=== PATIENT | male | born 1960 | race Caucasian/White ===

== ENCOUNTER 2018-05-26 18:58 | Observation (INO) | payer BC ==
[~2018-05-26] VITALS: Ht 177.8 cm; Wt 81.3 kg
[2018-05-26] MEDS ORDERED: KETOROLAC TROMETHAMINE 30 MG/ML VIAL IV STA (19:35)
[2018-05-26] MEDS ORDERED: SODIUM CHLORIDE 0.9% 1000ML 1,000 ML IV STA (19:45)
[2018-05-26] MEDS ORDERED: ONDANSETRON HCL INJ 2 MG/ML VIAL IV ONE (19:45)
[2018-05-26] MEDS ORDERED: HYDROMORPHONE 1MG/1ML INJ IV STA (19:45)
[2018-05-26] MEDS ORDERED: KETOROLAC TROMETHAMINE 30 MG/ML VIAL ONE (19:53)
[2018-05-26] MEDS ORDERED: ONDANSETRON HCL INJ 2 MG/ML VIAL ONE (19:53)
[2018-05-26] MEDS ORDERED: HYDROMORPHONE 2MG/ML 2 MG/ML ML IV ONE (20:00)
[2018-05-26 20:08] LABS: BASOPHILS # (AUTO) 0.1 (0.0-0.1); BASOPHILS % 0.1 % (0.0-1.0); EOSINOPHILS # (AUTO) 0.2 (0.0-0.4); EOSINOPHILS % 0.2 % (0.0-6.0); HEMOGLOBIN 15.5 g/dL (14.0-18.0); LYMPHOCYTES # (AUTO) 74.4 (1.0-3.2); LYMPHOCYTES % 82.1 % (18.0-39.1); MEAN CORPUSCULAR HEMOGLOBIN 32.6 pg (28-32); MEAN CORPUSCULAR HGB CONC 33.7 g/dL (31-35); MEAN CORPUSCULAR VOLUME 96.6 fL (81-99); MONOCYTES # (AUTO) 4.9 (0.2-0.8); MONOCYTES % 5.4 % (4.4-11.3); NEUTROPHILS # (AUTO) 10.6 (2.1-6.9); NEUTROPHILS % 11.7 % (38.7-80.0); PLATELET COUNT 173 x10e3/uL (140-360); RED BLOOD COUNT 4.76 x10e6/uL (4.3-5.7); RED CELL DISTRIBUTION WIDTH 13.5 % (11.7-14.4)
[2018-05-26 20:40] LABS: ALBUMIN/GLOBULIN RATIO 1.5 (0.8-2.0); ANION GAP 16.7 mmol/L (8-16); CALCIUM 9.9 mg/dL (8.4-10.2); CREATININE, SERUM 1.7 mg/dL (0.72-1.25); POTASSIUM 4.7 mmol/L (3.5-5.1)
[2018-05-26 20:43] LABS: LYMPHOCYTES % (MANUAL) 66 % (19-48); MONOCYTES % (MANUAL) 1 % (3.4-9.0); NEUTROPHILS % (MANUAL) 14 % (40-74); PLATELET ESTIMATE ADEQUATE; PLATELET MORPHOLOGY COMMENT NORMAL; RBC MORPHOLOGY COMMENT NORMAL
[2018-05-26 20:44] LABS: SMUDGE CELLS MODERATE
--- NOTE | 2018-05-26 21:43 | Diagnostic Imaging Report ---
EXAM: CT ABDOMEN/PELVIS WO DATE: 05/26/2018 7:45 PM INDICATION: Abdominal pain, right flank pain COMPARISON: None TECHNIQUE: The abdomen and pelvis were scanned using a multidetector helical scanner. Coronal and sagittal reformations were obtained. CT low dose techniques were utilized, as applicable. IV Contrast: 0 ml Isovue 300/370 FINDINGS: Lack of IV contrast decreases sensitivity in evaluating abdominal and pelvic organs. LOWER THORAX: No consolidations LIVER/BILIARY: Multiple low-density liver lesions, the largest compatible with cysts. . GALLBLADDER: Unremarkable SPLEEN: Unremarkable PANCREAS: Unremarkable ADRENALS: No nodules KIDNEYS: No left renal stones or hydronephrosis. Nonobstructing right inferior renal stones, the largest about 8 mm. Mild right hydroureteronephrosis with several small stones seen in the distal ureter and at the UVJ the largest measuring 4 to 5 mm (distal ureter) greatest dimension and the other two 1-2 mm. Mild right perinephric and periureteral stranding. GI TRACT: No wall thickening or evidence of obstruction. Normal appendix. Diverticulosis. VESSELS: Mild atherosclerotic calcifications PERITONEUM/RETROPERITONEUM: No free air or fluid collection LYMPH NODES: Abdominal and pelvic adenopathy including retroperitoneal, iliac and femoral chains. For example a right pelvic sidewall node measures 2.9 cm in short axis, left external iliac node 1.7 cm short axis, and a left periaortic node 1.2 cm in short axis. REPRODUCTIVE ORGANS/BLADDER: Unremarkable SOFT TISSUES: No acute findings. BONES: No suspicious bone lesions. IMPRESSION: 1. Mild right hydroureteronephrosis inflammatory changes related to multiple distal right ureteral calculi, as above. Nonobstructing right inferior renal calculi. 2. Abdominopelvic adenopathy suspicious for lymphoma or potentially metastatic disease of unknown primary. Signed by: Dr Radha Kaur MD on 05/26/2018 9:39 PM
[2018-05-26 22:45] LABS: BILIRUBIN,URINE NEGATIVE (NEGATIVE); CLARITY,URINE CLEAR (CLEAR); COLOR,URINE YELLOW (YELLOW); KETONES,URINE NEGATIVE (NEGATIVE); LEUKOCYTE ESTERASE ,URINE NEGATIVE (NEGATIVE); NITRITE,URINE NEGATIVE (NEGATIVE); PROTEIN,URINE DIPSTICK NEGATIVE (NEGATIVE); URINE UROBILINOGEN 0.2 mg/dL (0.2 - 1)
[2018-05-26 22:57] LABS: RBC,URINE 21-50 /HPF (0-5)
[2018-05-26 22:58] LABS: BACTERIA,URINE FEW /HPF; EPITHELIAL CELLS,URINE FEW /LPF; MUCUS,URINE MODERATE (RARE)
[2018-05-27] MEDS ORDERED: MORPHINE SULFATE 2 MG/ML SYR IV PRN (01:00)
[2018-05-27] MEDS: SODIUM CHLORIDE 0.9% 1000ML 1,000 ML IV SCH ×3 (01:43→17:12)
--- OUTSIDE RECORDS SUMMARY | 2018-05-27 01:43 | XMS REPORT ---
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 Allergies, Adverse Reactions, Alerts This patient has no known allergies or adverse reactions. Medications This patient has no known medications. Results Test Description Test Time Test Comments Text Results Atomic Results Result Comments CT ABDOMEN/PELVIS WO 2018-05-26 21:31:00 [place] [id number] [place] [id number] Patient Name: JESSICA ARMAS MR #: [id number] : 1960 Age/Sex: 58/M Req #: [id number] Adm Physician: Ordered by: JARET BAEZA NP Report #: [id number] Location: ER Room/Bed: Procedure: [id number] CT/CT ABDOMEN/PELVIS WO Exam Date: 05/26/18 Exam Time: 2026 REPORT STATUS: Signed EXAM: CT ABDOMEN/PELVIS WO DATE: 05/26/2018 7:45 PM INDICATION: Abdominal pain, right flank pain COMPARISON: None TECHNIQUE: The abdomen and pelvis were scanned using a multidetector helical scanner. Coronal and sagittal reformations were obtained. CT low dose techniques were utilized, as applicable. IV Contrast: 0 ml Isovue 300/370 FINDINGS: Lack of IV contrast decreases sensitivity in evaluating abdominal and pelvic organs. LOWER THORAX: No consolidations LIVER/BILIARY: Multiple low-density liver lesions, the largest compatible with cysts. . GALLBLADDER: Unremarkable SPLEEN: Unremarkable PANCREAS: Unremarkable ADRENALS: No nodules KIDNEYS: No left renal stones or hydronephrosis. Nonobstructing right inferior renal stones, the largest about 8 mm. Mild right hydroureteronephrosis with several small stones seen in the distal ureter and at the UVJ the largest measuring 4 to 5 mm (distal ureter) greatest dimension and the other two 1-2 mm. Mild right perinephric and periureteral stranding. GI TRACT: No wall thickening or evidence of obstruction. Normal appendix. Diverticulosis. VESSELS: Mild atherosclerotic calcifications PERITONEUM/RETROPERITONEUM: No free air or fluid collection LYMPH NODES: Abdominal and pelvic adenopathy including retroperitoneal, iliac and femoral chains. For example a right pelvic sidewall node measures 2.9 cm in short axis, left external iliac node 1.7 cm short axis, and a left periaortic node 1.2 cm in short axis. REPRODUCTIVE ORGANS/BLADDER: Unremarkable SOFT TISSUES: No acute findings. BONES: No suspicious bone lesions. IMPRESSION: 1. Mild right hydroureteronephrosis inflammatory changes related to multiple distal right ureteral calculi, as above. Nonobstructing right inferior renal calculi. 2. Abdominopelvic adenopathy suspicious for lymphoma or potentially metastatic disease of unknown primary. Signed by: Dr Raman Kaur MD on 05/26/2018 9:39 PM Dictated By: RAMAN KAUR MD El ectronically Signed By: RAMAN KAUR MD on 05/26/182138 Transcribed By: SUDHA on 05/26/182138 COPY TO: JARET BAEZA NP
[2018-05-27] MEDS ORDERED: ONDANSETRON HCL INJ 2 MG/ML VIAL IV PRN (01:45)
[2018-05-27] MEDS ORDERED: no home meds (04:46)
--- NOTE | 2018-05-27 06:53 | History and Physical ---
REASON FOR ADMISSION: Right kidney stone. HISTORY OF PRESENT ILLNESS: Patient is 58-year-old gentleman, who had recent ultrasonography done with stone, what sounds like a shockwave, who was doing well within 1 day after the ultrasound, patient had acute right-sided pain. When he came in, he was found to have multiple stones kind of wedged in his right ureter, the largest size being about 4-5 mm with some mild hydronephrosis, so he is being admitted for further evaluation. PAST MEDICAL HISTORY: Significant for CLL. MEDICATIONS: See MAR. ALLERGIES: NONE. SOCIAL: Nonsmoker, nondrinker. FAMILY HISTORY: Noncontributory. PHYSICAL EXAM VITALS: 98.6, pulse 74, blood pressure 136/72, sats are 98%. GENERAL: In no apparent distress, lying in bed. NECK: Supple. CARDIOVASCULAR: Regular rate and rhythm. LUNGS: Clear to auscultation bilaterally. ABDOMEN: Good bowel sounds. Soft, nontender. FLANK: There is no any flank tenderness at the moment. EXTREMITIES: No clubbing, cyanosis. NEUROLOGIC: Nonfocal. ASSESSMENT AND PLAN 1. Right nephrolithiasis. Will continue with current care. Consult Dr. Boland. 2. Acute kidney injury. Will continue to monitor. Hopefully, the creatinine will improve postremoval of the kidney stone. 3. Chronic lymphocytic leukemia. Continue to monitor. Patient states his baseline is around 80,000. Please see hospital chart for full details. Job#: [id number] CQ
[2018-05-27] MEDS ORDERED: PROPOFOL IV EMULSION 10 MG/ML 20 ML VIAL ONE (11:42)
[2018-05-27] MEDS ORDERED: LIDOCAINE HCL 2% LOCAL INJ 5 ML SDV VIAL INJ ONE (11:42)
[2018-05-27] MEDS ORDERED: SEVOFLURANE INHAL SOLN 250 ML PEN BTL ONE (11:42)
[2018-05-27] MEDS ORDERED: DEXAMETHASONE SOD PHOS INJ 4 MG/ML VIAL ONE (11:42)
[2018-05-27] MEDS ORDERED: CEFTRIAXONE SOD 1 GM VIAL ONE (11:42)
[2018-05-27] MEDS ORDERED: ONDANSETRON HCL INJ 2 MG/ML VIAL ONE (11:42)
[2018-05-27] MEDS ORDERED: BELLADONNA/OPIUM 60 MG SUPP PR ONE (12:10)
[2018-05-27] MEDS ORDERED: IOPAMIDOL 610MG/1ML 300 MG/ML VIAL IV ONE (12:10)
[2018-05-27 13:45] VITALS: BP 119/83
[2018-05-27] MEDS: OXYBUTYNIN CHLORIDE 5 MG TAB PO SCH ×2 (16:34→20:47)
[2018-05-27 16:36] VITALS: BP 103/64
[2018-05-27] MEDS: PHENAZOPYRIDINE HCL 100 MG TAB PO SCH (17:27)
[2018-05-27 19:50] VITALS: BP 96/53
[2018-05-27 20:00] VITALS: BP 96/53
[2018-05-28 00:40] VITALS: BP 91/58
[2018-05-28 05:00] VITALS: BP 116/66
[2018-05-28 05:39] LABS: BASOPHILS # (AUTO) 0.2 (0.0-0.1); BASOPHILS % 0.3 % (0.0-1.0); EOSINOPHILS # (AUTO) 0.1 (0.0-0.4); EOSINOPHILS % 0.1 % (0.0-6.0); HEMOGLOBIN 12.8 g/dL (14.0-18.0); LYMPHOCYTES # (AUTO) 48.4 (1.0-3.2); LYMPHOCYTES % 80.3 % (18.0-39.1); MEAN CORPUSCULAR HEMOGLOBIN 32.8 pg (28-32); MEAN CORPUSCULAR HGB CONC 33.7 g/dL (31-35); MEAN CORPUSCULAR VOLUME 97.4 fL (81-99); MONOCYTES # (AUTO) 2.4 (0.2-0.8); MONOCYTES % 3.9 % (4.4-11.3); NEUTROPHILS # (AUTO) 8.9 (2.1-6.9); NEUTROPHILS % 14.9 % (38.7-80.0); PLATELET COUNT 129 x10e3/uL (140-360)
[2018-05-28 06:16] LABS: ANION GAP 13.9 mmol/L (8-16); CALCIUM 8.7 mg/dL (8.4-10.2); CREATININE, SERUM 1.49 mg/dL (0.72-1.25); POTASSIUM 4.9 mmol/L (3.5-5.1)
[2018-05-28 06:59] LABS: BAND NEUTROPHILS % (MANUAL) 1 %; LYMPHOCYTES % (MANUAL) 67 % (19-48); NEUTROPHILS % (MANUAL) 23 % (40-74); PLATELET ESTIMATE SLIGHTLY DECREASED; PLATELET MORPHOLOGY COMMENT NORMAL; SMUDGE CELLS MODERATE
[2018-05-28 07:27] VITALS: BP 124/67
[2018-05-28] MEDS: PHENAZOPYRIDINE HCL 100 MG TAB PO SCH (08:05)
[2018-05-28] MEDS: OXYBUTYNIN CHLORIDE 5 MG TAB PO SCH (08:05)
[2018-05-28 09:16] VITALS: BP 124/67
[2018-05-28 11:21] VITALS: BP 121/67
[2018-05-28] MEDS ORDERED: DITROPAN XL5 MG PO (12:57)
--- NOTE | 2018-06-18 01:46 | Discharge Summary ---
DISCHARGE DIAGNOSES 1. Right kidney stone. 2. Chronic kidney disease stage 3. 3. Leukocytosis. 4. Chronic lymphocytic leukemia. HISTORY OF PRESENT ILLNESS AND HOSPITAL COURSE: Patient is a gentleman who presented with right renal colic, was seen by Dr. Mejia where he was taken to the OR to relieve his right renal colic where he had relief of his symptoms after having a stent placed, and at the time of discharge, he was told to follow up in [address] Boland. Please see hospital chart for full details. TERESSA RAYGOZA MD Job#: [id number] CORDELIA
--- NOTE | 2018-07-11 00:09 | Operative Report ---
DATE OF PROCEDURE: July 27, 2018 PREOPERATIVE DIAGNOSES 1. Right ureterolithiasis. 2. Right hydronephrosis due to stone. 3. Acute renal failure. POSTOPERATIVE DIAGNOSES 1. Right ureterolithiasis. 2. Right hydronephrosis due to stone. 3. Acute renal failure. 4. Right ureteral stricture. OPERATIONS PERFORMED 1. Cystourethroscopy with bilateral ureteral catheterization and retrograde ureteropyelography (separate procedure performed for the acute renal failure). 2. Interpretation of retrograde pyelography. 3. Supervision of fluoroscopy. No radiologist present. 4. Right ureteroscopy with dilation of distal ureteral stricture (separate procedure performed for diagnosis of the stricture). 5. Right ureteroscopy with stone manipulation and extraction (separate procedure performed for the obstructing right ureterolithiasis). 6. Radiological services for supervision and interpretation of ureteroscopy. 7. Cystourethroscopy with insertion of right indwelling ureteral stent (separate procedure performed to relieve the hydronephrosis). ANESTHESIA: General. COMPLICATIONS: None. CLINICAL SUMMARY: Leonel Wilkinson is a 58-year-old man who has undergone ESWL. No stent was left in place. The patient had severe renal colic, was admitted, was found to be in acute renal failure. Options discussed with the patient. He elected to proceed with resolution of his obstruction. He is aware of the risks of bleeding, infection, injury to adjacent structures, need for additional procedures, and elected to proceed. He understands he will have a temporary indwelling ureteral stent that requires followup and removal. OPERATIVE PROCEDURE IN DETAIL: Informed consent was verified. Leonel Wilkinson was properly identified, taken to the operating room, placed on the cystoscopy table in supine position. Anesthesia was uneventfully begun. The patient was then carefully and gently re-positioned in the dorsal lithotomy position with all pressure points well padded. His genitalia was prepared and draped in usual sterile fashion. The 22.5-Turkmen cystoscope sheath with a visual obturator in place was atraumatically inserted in the patient's urethra. It was guided down a relatively unremarkable urethra through the prostate bed which was significant for mildly obstructive BPH and entered into the patient's bladder where panendoscopy revealed some sand within the bladder presumably from the patient's ESWL. Both ureteral orifices were in the normal orthotopic position. A ureteral catheter was used to cannulate the left ureter and retrograde ureteropyelogram was performed. It was inserted in the right ureter and retrograde ureteropyelogram was performed. Interpretation of retrograde ureteropyelography: Contrast was injected in retrograde fashion bilaterally. The left side was normal. There were no tumors, no stones, and no diverticula. Unobstructed drainage was observed. The right side exhibited obstruction caused by distal ureteral stone. There was also a filling defect in the lower pole giuliano corresponding to the 8-mm stone noted on CT. A guidewire was then placed into the right ureter and guided to the level of the patient's kidney. Semirigid ureteroscope was then placed alongside the guidewire into the right ureter. The right intramural ureter was stenosed which explains why these stones were unable to pass. We gently dilated over a guidewire utilizing the ureteroscope this portion of the intramural ureter and then we passed this obstruction. We entered the dilated ureter. We identified multiple stones. A basket was then utilized to atraumatically extract the largest of the stones. There was some fine sand that was too small for a basket to grasp. With cystoscopic and fluoroscopic guidance, a right-sided indwelling ureteral stent was then placed. It was coiled in the patient's kidney as well as the patient's bladder. The retaining suture was cut. Patient's bladder was drained. Cystoscope was withdrawn and the patient was uneventfully reversed from anesthesia and taken to the recovery room in stable condition. Plans will be to monitor the patient's creatinine and hopefully discharge the patient postop day 1. A total of 4 stones was removed ureteroscopically from the right ureter. This was a staged procedure as part of a multistage, multistep process of managing the patient's nephrolithiasis and these procedures were not directly related or included within the ESWL procedure. Job#: [id number]
== END 2018-05-28 13:10 | disposition home or self-care (01) ==
LOC: ER 18:58 → UNDOADMOB 05-27 01:32 → ERHOLD 05-27 01:32 → OR 05-27 11:30 → PACU V 05-27 11:31 → IMCU 05-27 14:20
PROVIDERS: ADMIT Internal Medicine; ATTEND Internal Medicine
DX: N13.2 Hydronephrosis with renal and ureteral calculous obstruction (principal); N13.1 Hydronephrosis with ureteral stricture, not elsewhere classified; C91.10 Chronic lymphocytic leukemia of B-cell type not having achieved remission; N17.9 Acute kidney failure, unspecified; N18.3 Chronic kidney disease, stage 3 (moderate)
CPT/HCPCS: 36415 ×2; 52332; 52344; 52352; 74176; 74420; 80048; 80053; 81001; 83690; 85025 ×2; 87086; 88300; 96374; 96375; 99284; C1766; C2617; G0378 ×2; J0696; J1100; J1885; J2001; J2405 ×2; J2704; J7030 ×2; Q9967